=== PATIENT | female | born 1960 | race Caucasian/White ===

== ENCOUNTER → 2018-09-29 09:50 | Outpatient (POV) | payer MEDICARE, MEDICAID, SELFPAY | PROVIDERS: Visit Provider Internal Medicine | DX: Z00.00 Encounter for general adult medical examination without abnormal findings (principal) ==

== ENCOUNTER → 2018-12-29 08:43 | Outpatient (POV) | payer MEDICARE, SELFPAY | PROVIDERS: Visit Provider Internal Medicine | DX: Z00.00 Encounter for general adult medical examination without abnormal findings (principal) ==

== ENCOUNTER → 2019-06-07 10:30 | Outpatient (CLI) | payer MEDICARE, SELFPAY ==
--- NOTE | 2019-06-07 10:33 | CT_ITS ---
PROCEDURE: CT LUNG SCREENING CLINICAL INDICATION: H/O NICOTINE DEPENDENCE Fifty-five pack-year smoking history, asymptomatic for lung cancer COMPARISON: LDCTLCAS LDCT FOR LUNG CA SCREEN from 05/28/2017 TECHNIQUE: The exam was performed on a [employer] Speed [address] scanner using 2.90 mGy CTDI. A low dose helical CT CHEST was performed on a multi-detector scanner. All CT scans at the facility use one or more dose reduction, viz: automated exposure control, ma/kV adjustment per patient size (including targeted exams where dose is matched to indication, i.e. head), or iterative reconstruction technique. The LDCT was performed in a facility that meets the criteria for the screening program. Data regarding this exam was submitted to ACR which is an approved registry. The order for this exam indicates that it came as a result of a lung cancer screening counseling shard decision-making visit that included all the elements required of such a visit including smoking cessation. The radiologist interpreting this exam meets the CMS criteria for the LDCT lung cancer screening program. The exam is reported using the Lung-RADS classification scale and reported to the ACR registry. NOTE: This study was performed for the specific purposes of lung cancer screening and is not an alternative to diagnostic chest CT. RADIATION DOSE: CTDI vol(CT dose Index-volume) = 2.90mG DLP (Dose Length Product) = 115.94 mGcm FINDINGS: No change in the 6 mm fissural nodule in the right lung base. A subpleural nodular opacity is present in the left lower lobe posterior laterally at 4 mm unchanged Mild centrilobular emphysema/COPD. There are few small nodes in the mediastinum which are unchanged. Minimal atelectatic or fibrotic changes are present in the lingula. OTHER FINDINGS: No other pertinent findings evident. IMPRESSION: Lung rads category 2 benign findings Centrilobular emphysema/COPD. Mild atelectatic or fibrotic change in the lingula Recommend [address] Dictated by: Agus Matthew MD 06/11/2019 10:32 Signed by: <Electronically signed by Agus Matthew MD in [place]> 06/11/2019 10:32
== END ==
PROVIDERS: PCP Family Medicine; Visit Provider Internal Medicine
DX: Z87.891 Personal history of nicotine dependence (principal); Z12.2 Encounter for screening for malignant neoplasm of respiratory organs

== ENCOUNTER → 2019-07-20 08:56 | Outpatient (POV) | payer MEDICARE, SELFPAY | PROVIDERS: Visit Provider Internal Medicine | DX: Z00.00 Encounter for general adult medical examination without abnormal findings (principal) ==

== ENCOUNTER → 2022-03-28 14:12 | Outpatient (CLI) | payer MEDICARE, SELFPAY ==
--- NOTE | 2022-03-28 14:12 | CT_ITS ---
FINAL REPORT CLINICAL HISTORY: lung cancer screening, hx smoker for 15 years, one ppd, quit one year ago COMPARISON: June 07, 2019 FINDINGS: Low-Dose Chest CT CTDI vol (mGy): 2.90 DLP (mGy-cm): 113.07 Axial images were obtained from the lung apex to the mid abdomen by computed tomography. Low-dose protocol was utilized. FINDINGS: CHEST: There is no axillary adenopathy. There are several borderline sized mediastinal lymph nodes, stable from the prior exam. The heart is proper size. There is no pericardial or pleural effusion. Limited images of the upper abdomen demonstrate changes from cholecystectomy. Lung window images demonstrate mild changes of emphysema with mild scarring. A 6 mm nodule near the right major fissure on image 46 is stable. There is a stable 4 mm pleural base nodule in the left lower lobe on image 45. There is a calcified granuloma in the right lower lobe. There is no new mass or pulmonary nodule. IMPRESSION: Lung RADS category 1. Recommend 12 month follow-up low-dose chest CT. Reviewed, Interpreted and Dictated by Norman Sage III, MD Transcribed by James Garcia Authenticated and [facility]
--- NOTE | 2022-03-28 15:32 | PC.NURSE ---
PFT and 6 Minute Walk Test completed without incident. Albuterol 0.083% given via HHN, per protocol, Pt tolerated tx well.
== END ==
PROVIDERS: PCP Family Medicine; Visit Provider Internal Medicine Pulmonary Disease
DX: Z87.891 Personal history of nicotine dependence; Z12.2 Encounter for screening for malignant neoplasm of respiratory organs; R06.09 Other forms of dyspnea
CPT/HCPCS: 71271; 94060; 94618; 94726; 94729

== ENCOUNTER 2022-09-17 19:39 | Emergency (ER) | payer MEDICARE, SELFPAY ==
[2022-09-17 20:28] VITALS: BP 162/69; PULSE 88; RESP 18; TEMP 36.8; O2SAT 98; BMI 25.0
--- NOTE | 2022-09-17 20:56 | CT_ITS ---
PROCEDURE INFORMATION: Exam: CT Abdomen And Pelvis With Contrast Exam date and time: 09/17/2022 9:30 PM Age: 62 years old Clinical indication: Condition or disease; Other: R/O prolapse; Additional info: Possible prolapse. TECHNIQUE: Imaging protocol: Computed tomography of the abdomen and pelvis with contrast. Radiation optimization: All CT scans at this facility use at least one of these dose optimization techniques: automated exposure control; mA and/or kV adjustment per patient size (includes targeted exams where dose is matched to clinical indication); or iterative reconstruction. Contrast material: ISOVUE; Contrast volume: 75 ml; Contrast route: IV; COMPARISON: ABDPELW/O CT ABD PELVIS W/O CONTRAST 10/06/2015 6:29 PM FINDINGS: Lungs: Right lower lobe granuloma. Liver: No focal hepatic lesions. Gallbladder and bile ducts: There has been a cholecystectomy. No biliary ductal dilation. Pancreas: No peripancreatic fluid stranding. No main pancreatic ductal dilation. Spleen: No splenomegaly. Adrenal glands: The adrenal glands are normal. Kidneys and ureters: Nephrograms are symmetric. No nephrolithiasis or hydroureteronephrosis on either side. No solid lesions Stomach and bowel: No evidence of rectal prolapse. No bowel wall thickening or distention. Pancolonic diverticulosis noted without acute inflammatory change. Appendix: Status post appendectomy Intraperitoneal space: There is no evidence of free intraperitoneal or pelvic fluid. Vasculature: The aorta demonstrates moderate atherosclerotic calcification. Lymph nodes: Unremarkable. No enlarged lymph nodes. Urinary bladder: Urinary bladder is unremarkable. No evidence of cystocele Reproductive: Unremarkable as visualized. Bones/joints: No acute osseous abnormality. Mild multilevel degenerative changes of the included spine. Soft tissues: Unremarkable. IMPRESSION: 1. No acute abnormality in the abdomen or pelvis 2. No evidence of cystocele or rectal prolapse
[2022-09-17 21:07] LABS: Microscopic, Urine URINE MICROSCOPIC (MICROSCOPIC)
[2022-09-17 21:08] LABS: Appearance,Urine CLEAR (Clear); Bilirubin,Urine Negative (Negative); Blood, Urine 3+ (Negative); Color,Urine YELLOW (Yellow); Glucose,Urine (UA) Negative (Negative); Ketones,Urine Negative (Negative); Leukocyte Esterase,Urine TRACE (Negative); Nitrate,Urine POSITIVE (Negative); Protein,Urine Negative (Negative); Specific Gravity, Urine >= 1.030 (1.005-1.030); Urobilinogen,Urine 0.2 EU/dl (0.2)
[2022-09-17 21:10] LABS: Basophils # 0.1 K/mm3 (0-0.2); Eosinophils # 0.1 K/mm3 (0.0-0.4); Hematocrit 39.7 % (37.0-47.0); Hemoglobin 13.3 g/dL (12.2-16.2); Lymphocytes % 14.3 % (10-50); Mean Corpuscular HGB Conc 33.5 g/dL (31.8-35.4); Mean Corpuscular Hemoglobin 27.7 pg (27.0-31.2); Mean Corpuscular Volume 82.8 fl (81-99); Mean Platelet Volume 9.1 fl (7.4-10.4); Monocytes # 0.5 K/mm3 (0.1-1.0); Monocytes % 6.1 % (1.7-9.3); Neutrophils # 5.7 K/mm3 (1.8-7.8); Neutrophils % 77.6 % (37.0-80.0); Platelet Count 244 K/mm3 (142-424); Red Blood Count 4.79 M/mm3 (4.20-5.40); White Blood Count 7.3 K/mm3 (4.8-10.8)
[2022-09-17 21:18] LABS: Chloride 106 mmol/L (98-107); Potassium 3.6 mmoL/L (3.5-5.1); Sodium 137 mmol/L (136-145)
[2022-09-17 21:20] LABS: Alanine Aminotransferase 16 U/L (12-78); Aspartate Amino Transferase 25 U/L (14-36); Blood Urea Nitrogen 21 mg/dl (7-17); Creatinine Clearance Estimated 67 mL/min (50-200); Estimated Glomerular Filt Rate 63 ml/min (>60); GFR (African American) 76 ML/MIN (>60)
[2022-09-17 21:21] LABS: Bacteria,Urine 4+ /lpf; RBC,Urine 20-50 #/hpf (0-3)
[2022-09-17 21:21] LABS: Albumin Level 4.4 g/dl (3.5-5.0); Albumin/Globulin Ratio 1.5 (1.1-1.8); Alkaline Phosphatase 91 U/L (38-126); Anion Gap 5.6 mEq/L (5-15); Bilirubin,Total 0.2 mg/dl (0.2-1.3); Calcium 9.4 mg/dl (8.4-10.2); Carbon Dioxide 29 mmol/L (22.0-30.0); Globulin 2.9 g/dL (1.3-3.2); Glucose 130 mg/dl (74-100); Total Protein,Serum 7.3 g/dl (6.3-8.2)
--- NOTE | 2022-09-17 21:37 | HMH.EDUROGF ---
Discharge Plan Disposition Patient Disposition: Home, Self-Care Prescriptions Prescriptions: No Action tizanidine 2 mg capsule 2 mg PO TID PRN (Reason: muscle relaxer) gabapentin [Neurontin] 600 mg tablet 600 mg PO TID hydrocodone-acetaminophen [[place]] 7.5-325 mg tablet 1 tab PO Q4-6H PRN (Reason: Pain) amlodipine 10 mg tablet 10 mg PO DAILY mesalamine 1.2 gram tablet,delayed release (DR/EC) 2.4 g PO DAILY benazepril 20 mg tablet 20 mg PO DAILY omeprazole 40 mg capsule,delayed release(DR/EC) 40 mg PO DAILY albuterol sulfate 90 mcg/actuation HFA aerosol inhaler 2 inh INHALATION Q6H PRN (Reason: shortness of breath or wheezing) 90 Days Qty: 8.5 3RF Referrals Follow up/Referrals: Diego Hitchcock MD [Staff Physician] - See instructions Cb Crockett APRN [Primary Care Provider] - See instructions Clinical Impressions Clinical Impression: Abnormal vaginal bleeding Instructions Patient Instructions: DI for Vaginal Bleeding Discharge ED Provider: Anshul Marcus Female Urogenital HPI General Chief complaint: Urogenital-Female Stated complaint: bleeding when urinating Time Seen by Provider: 09/17/22 21:37 Mode of Arrival: Ambulatory Source of Information: Patient and Medical Record Limitations: No Limitations Description of Symptoms (Recalled from ER Triage Doc. by RN): Pt states that she noticed she had vaginal bleeding at 1900 this evening. States she took a mirror and noticed that she had something hanging out of her vagina which she believes is her uterus. History of Present Illness HPI Narrative: episode of vag bleeding tonight - has had hysterectomy - concern for prolapse Complaint: vaginal bleeding Onset (ago): hour(s) Severity: moderate Duration: intermittent : No Associated symptoms: denies other symptoms Related Data Home Medications Medication Instructions Recorded Confirmed gabapentin 600 mg tablet 600 mg PO TID nerve pain 11/10/18 09/17/22 (Neurontin) hydrocodone 7.5 mg-acetaminophen 1 tab PO Q4-6H PRN Pain 11/10/18 09/17/22 325 mg tablet ([place]) tizanidine 2 mg capsule 2 mg PO TID PRN muscle relaxer 11/10/18 09/17/22 amlodipine 10 mg tablet 10 mg PO DAILY htn 02/14/22 09/17/22 benazepril 20 mg tablet 20 mg PO DAILY htn 02/14/22 09/17/22 mesalamine 1.2 gram tablet,delayed 2.4 g PO DAILY nsaid 02/14/22 09/17/22 release omeprazole 40 mg capsule,delayed 40 mg PO DAILY GERD 02/14/22 09/17/22 release Previous Rx's Medication Instructions Recorded albuterol sulfate 90 mcg/actuation 2 inh inhalation Q6H PRN shortness 04/02/22 aerosol inhaler of breath or wheezing 90 days #8.5 grams Allergies Allergy/AdvReac Type Severity Reaction Status Date / Time Sulfa (Sulfonamide Allergy Mild Verified 09/17/22 21:51 Antibiotics) [SULFA (SULFONAMIDE ANTIBIOTICS)] [facility] Disclaimer: The information contained in this section may have been updated after the patient was seen, as this information can be updated by other users. Surgical History (Updated 09/04/22 @ 15:24 by Diego Hitchcock MD) History of laparoscopic appendectomy Hx laparoscopic cholecystectomy Hx of total vaginal hysterectomy Social History (Updated 09/04/22 @ 14:29 by PATRICK Smallwood) Smoking Status: Former smoker alcohol intake: never current occupational status: employed Travel in the last 8 weeks: None household members: family ROS Obtained: Yes All systems reviewed & no additional complaints except as documented Physical Exam General General appearance: alert Head Head exam: normocephalic Eye Eye exam: Present PERRL and EOMI ENT ENT exam: Present mucous membranes moist Neck Neck exam: Present trachea midline Respiratory Respiratory exam: Present normal lung sounds bilaterally Cardiovascular Cardiovascular exam: Present regular rate Abdominal Exam Abdominal exam: Present soft External exam: Pr
[2022-09-17 22:00] VITALS: BP 150/68; PULSE 82; RESP 17; TEMP 36.8; O2SAT 98
--- NOTE | 2022-09-17 22:11 | PC.NURSE ---
pt requesting disc, radiology preparing disc
== END 2022-09-17 22:15 | disposition home or self-care (01) ==
LOC: UTC 19:45 → ER 19:57
PROVIDERS: Emergency Provider Emergency Medicine; PCP Nurse Practitioner Family
DX: N93.9 Abnormal uterine and vaginal bleeding, unspecified (principal); R06.02 Shortness of breath; Z79.1 Long term (current) use of non-steroidal anti-inflammatories (NSAID); Z79.52 Long term (current) use of systemic steroids; Z79.899 Other long term (current) drug therapy; Z88.2 Allergy status to sulfonamides; Z87.891 Personal history of nicotine dependence
CPT/HCPCS: 74177; 80053; 81001; 85025; 87086; 87088; 87186; 99285; Q9967

== ENCOUNTER → 2023-04-23 09:47 | Outpatient (POV) | payer MEDICARE, SELFPAY | PROVIDERS: Visit Provider Specialist/Technologist | DX: Z00.00 Encounter for general adult medical examination without abnormal findings (principal) ==

== ENCOUNTER → 2023-05-06 13:27 | Outpatient (CLI) | payer MEDICARE, SELFPAY ==
--- NOTE | 2023-05-06 13:28 | CT_ITS ---
FINAL REPORT CLINICAL HISTORY: lung cancer screening FORMER SMOKER, QUIT 2 1/2 YRS AGO, SMOKED 1 PK PER DAY X 15 YRS. EMPYSEMA FINDINGS: CT CHEST LOW DOSE SCREENING DOSE: CTDIvol: 2.90 mGy, DLP: 119.07 mGycm TECHNIQUE: Axial CT without IV contrast administration using low dose protocol No acute lung disease is present . There is a midline nodule along the medial major fissure seen on image 49 of series 3 measuring 4 mm, unchanged from previous. No pleural or pericardial effusion is seen . No adenopathy or mass lesion is present . Small hiatal hernia is present. IMPRESSION: 1. No evidence of lung cancer LUNG RADS CATEGORY 2 RECOMMENDATION: 12 month LDCT follow up Reviewed, Interpreted and Dictated by Augustin Leong MD Transcribed by Tamika Kuo Authenticated and [facility]
== END ==
LOC: RAD 13:28
PROVIDERS: PCP Nurse Practitioner Family; Visit Provider Internal Medicine Pulmonary Disease
DX: Z87.891 Personal history of nicotine dependence; Z12.2 Encounter for screening for malignant neoplasm of respiratory organs; R06.09 Other forms of dyspnea
CPT/HCPCS: 71271; 94060; 94726; 94729